=== PATIENT | male | born 1955 | race Caucasian/White ===

== ENCOUNTER → 2021-10-12 | Day surgery (SDC) | payer BC ==
[~2021-10-12] MED LIST: Bupivacaine 0.5% 30 ML SDV INJECT ONE; Lactated Ringers 1,000 ML IV SCH; Lidocaine 1% with EPINEPHrine 1:100,000 20 ML MDV INJECT ONE; Sodium Chloride 0.9% 10 ML Syringe FLUSH PRN; ceFAZolin 1 GM Vial IVPUSH ONE; ceFAZolin 1 GM in Sodium Chloride 0.9% 50 ML IV ONE
[2021-10-12 10:46] VITALS: BP 124/77; PULSE 70
== END | disposition home or self-care (01) ==
LOC: FB.SDS 06:23
PROVIDERS: ATTEND Surgery
DX: K40.91 Unilateral inguinal hernia, without obstruction or gangrene, recurrent (principal); D17.6 Benign lipomatous neoplasm of spermatic cord; E78.00 Pure hypercholesterolemia, unspecified; Z88.2 Allergy status to sulfonamides; Z88.8 Allergy status to other drugs, medicaments and biological substances; Z79.899 Other long term (current) drug therapy; Z98.890 Other specified postprocedural states
CPT/HCPCS: 00830-QZ; 88300; 88304; C1781; J0690; J3490; J7120

== ENCOUNTER 2022-04-10 06:22 | Day surgery (SDC) | payer BC ==
[~2022-04-10 06:22] MED LIST changes: -Bupivacaine 0.5% 30 ML SDV INJECT ONE; -Lidocaine 1% with EPINEPHrine 1:100,000 20 ML MDV INJECT ONE; -ceFAZolin 1 GM Vial IVPUSH ONE; -ceFAZolin 1 GM in Sodium Chloride 0.9% 50 ML IV ONE
[2022-04-10] MEDS ORDERED: Ketorolac 30 MG/ML SDV IVPUSH ONE (06:23)
[2022-04-10] MEDS ORDERED: Midazolam 1 MG/ML 2 ML SDV IV ONE (06:23)
[2022-04-10] MEDS ORDERED: Dexmedetomidine 200 MCG/2 ML SDV IV ONE (06:23)
[2022-04-10] MEDS ORDERED: Propofol 200 MG/20 ML SDV IV ONE (06:23)
[2022-04-10] MEDS ORDERED: ceFAZolin 1 GM in Sodium Chloride 0.9% 50 ML IV ONE (07:30)
[2022-04-10] MEDS ORDERED: ceFAZolin 1 GM Vial IVPUSH ONE (07:30)
[2022-04-10] MEDS ORDERED: Bupivacaine 0.5% 50 ML MDV INJECT ONE (07:44)
[2022-04-10] MEDS ORDERED: Lidocaine 1% with EPINEPHrine 1:100,000 20 ML MDV INJECT ONE (07:44)
[2022-04-10 09:14] VITALS: BP 125/79; PULSE 68
== END 2022-04-10 09:18 | disposition home or self-care (01) ==
LOC: FB.SDS 06:22
PROVIDERS: ATTEND Surgery
DX: R22.2 Localized swelling, mass and lump, trunk (principal); E78.00 Pure hypercholesterolemia, unspecified; M19.90 Unspecified osteoarthritis, unspecified site; Z88.2 Allergy status to sulfonamides; Z98.890 Other specified postprocedural states; Z79.899 Other long term (current) drug therapy
CPT/HCPCS: 00400-QZ; 88304; J0690; J1885; J2250; J2704; J3490; J7120